=== PATIENT | male | born 1955 | race Caucasian/White ===

== ENCOUNTER 2017-11-23 09:19 | Inpatient (IN) | payer OTHER, MEDICAID, SELFPAY ==
[2017-11-23 09:58] LABS: BASO % 0.2 % (0.0-1.0); HEMATOCRIT 53.8 % (42.0-52.0); HEMOGLOBIN 16.2 g/dl (14.0-18.0); IMMATURE GRANULOCYTE # 0.1 10^3/uL (0-0); IMMATURE GRANULOCYTE % 0.5 % (0-0); LYMPH # 1.7 10^3/uL (1.5-4.5); LYMPH % 13.5 % (24.0-44.0); MEAN CORPUSCULAR HEMOGLOBIN 25.6 pg (27.0-33.0); MEAN CORPUSCULAR HGB CONC 30.1 g/dl (32.0-36.5); MONO # 0.9 10^3/uL (0.0-0.8); MONO % 7.4 % (0.0-5.0); NEUTROPHILS % 78.4 % (36.0-66.0); PLATELET COUNT, AUTOMATED 484 10^3/uL (150-450); RED BLOOD COUNT 6.33 10^6/uL (4.30-6.10); WHITE BLOOD COUNT 12.7 10^3/uL (4.0-10.0)
[2017-11-23 10:38] LABS: ALBUMIN/GLOBULIN RATIO 0.39 (1.00-1.93); ALKALINE PHOSPHATASE 91 U/L (45-117); ALT/SGPT 19 U/L (12-78); ANION GAP 8 MEQ/L (8-16); AST/SGOT 35 U/L (7-37); BILIRUBIN,DIRECT 0.3 MG/DL (0.0-0.2); BILIRUBIN,TOTAL 0.7 MG/DL (0.2-1.0); BLOOD UREA NITROGEN 38 MG/DL (7-18); CALCIUM LEVEL 10.5 MG/DL (8.8-10.2); CARBON DIOXIDE LEVEL 36 MEQ/L (21-32); CHLORIDE LEVEL 108 MEQ/L (98-107); CREATININE FOR GFR 1.04 MG/DL (0.70-1.30); GLOMERULAR FILTRATION RATE > 60.0 (>49); GLUCOSE, FASTING 134 MG/DL (80-110); POTASSIUM SERUM 3.9 MEQ/L (3.5-5.1); SODIUM LEVEL 152 MEQ/L (136-145); TOTAL PROTEIN 10.6 GM/DL (6.4-8.2)
[2017-11-23 10:40] LABS: INR 1.09; PROTHROMBIN TIME 14.3 SECONDS (12.4-14.5)
[2017-11-23 10:41] LABS: PARTIAL THROMBOPLASTIN TIME 27.6 SECONDS (26.8-37.9)
[2017-11-23] MEDS ORDERED: METOPROLOL 5 MG/5 ML VIAL IV ×2 (10:45→17:15)
[2017-11-23 10:48] LABS: CPK CREATINE PHOSPHOKINASE 154 U/L (39-308); TROPONIN I 0.03 NG/ML (< 0.10)
[2017-11-23 10:49] LABS: CK-MB VALUE MASS 1.5 NG/ML (0.0-3.6); MB/CK RELATIVE INDEX 0.97 (< OR =4)
[2017-11-23] MEDS: METOPROLOL TART 50 MG TAB PO (10:49)
[2017-11-23] MEDS: NS 500 ML IV (10:49)
[2017-11-23] MEDS ORDERED: ISOVUE-370 76% 100ML VIAL (Q9967) As Ordered (10:50)
[2017-11-23] MEDS: LevoFLOXacin IV 750 MG in APPROPRIATE DILUENT 1 EA IV (12:45)
[2017-11-23] MEDS: NS 1,000 ML IV (12:45)
[2017-11-23] MEDS ORDERED: ONDANSETRON 4MG/2ML VIAL (J2405) IV (13:45)
[2017-11-23] MEDS: D5W/0.9% SODIUM CHLORIDE 1,000 ML IV ×2 (14:34→18:00)
[2017-11-23] MEDS ORDERED: METOPROLOL 5 MG/5 ML VIAL As Ordered (15:49)
[2017-11-23] MEDS: METOPROLOL 5 MG/5 ML VIAL IV (15:55)
[2017-11-23] MEDS ORDERED: ADENOSINE 6MG/2ML INJECTION (J0153) As Ordered (15:55)
[2017-11-23] MEDS ORDERED: DIGOXIN INJ 0.5 MG/2 ML AMP (J1160) As Ordered ×2 (15:59→16:04)
[2017-11-23] MEDS: DIGOXIN INJ 0.5 MG/2 ML AMP (J1160) IV ×3 (16:05→16:30)
[2017-11-23] MEDS: SODIUM CHLORIDE 0.9% 1000 ML IV (16:25)
[2017-11-23 16:38] LABS: HEMATOCRIT 42.6 % (42.0-52.0); MEAN CORPUSCULAR HEMOGLOBIN 25.5 pg (27.0-33.0); MEAN CORPUSCULAR HGB CONC 30.3 g/dl (32.0-36.5); MEAN CORPUSCULAR VOLUME 84.4 fl (80.0-96.0); RED BLOOD COUNT 5.05 10^6/uL (4.30-6.10); RED CELL DISTRIBUTION WIDTH 16.9 % (11.5-14.5); WHITE BLOOD COUNT 9.6 10^3/uL (4.0-10.0)
[2017-11-23 16:42] LABS: HEMOGLOBIN 12.9 g/dl (14.0-18.0); PLATELET COUNT, AUTOMATED 339 10^3/uL (150-450)
[2017-11-23] MEDS ORDERED: AMIODARONE HCL 150 MG/100 ML PREMIXED BAG (NEXTERONE) As Ordered (16:44)
[2017-11-23] MEDS: AMIODARONE HCL 150 MG in APPROPRIATE DILUENT 1 EA IV (16:53)
[2017-11-23] MEDS ORDERED: diltiaZEM 125 MG in NS 100 ML IV (17:00)
[2017-11-23 17:04] LABS: ANION GAP 8 MEQ/L (8-16); BLOOD UREA NITROGEN 34 MG/DL (7-18); CALCIUM LEVEL 8.7 MG/DL (8.8-10.2); CARBON DIOXIDE LEVEL 31 MEQ/L (21-32); CHLORIDE LEVEL 114 MEQ/L (98-107); CPK CREATINE PHOSPHOKINASE 120 U/L (39-308); CREATININE FOR GFR 0.82 MG/DL (0.70-1.30); GLOMERULAR FILTRATION RATE > 60.0 (>49); GLUCOSE, FASTING 279 MG/DL (80-110); MAGNESIUM LEVEL 2.5 MG/DL (1.8-2.4); POTASSIUM SERUM 3.6 MEQ/L (3.5-5.1); SODIUM LEVEL 153 MEQ/L (136-145); TROPONIN I 0.03 NG/ML (< 0.10)
[2017-11-23 17:05] LABS: MB/CK RELATIVE INDEX 0.83 (< OR =4)
[2017-11-23] MEDS ORDERED: DIGOXIN INJ 0.5 MG/2 ML AMP (J1160) IV ×3 (17:15)
[2017-11-23] MEDS: CLINDAMYCIN 600 MG in APPROPRIATE DILUENT 1 EA IV ×2 (17:29→22:55)
[2017-11-23] MEDS ORDERED: DIGOXIN IMMUNE FAB (OVINE) 40MG VIAL (J1162) IV (17:30)
[2017-11-23] MEDS: ENOXAPARIN 60 MG/0.6 ML SYR (J1650) SC (18:32)
[2017-11-23] MEDS: D5W/0.45% SODIUM CHLORIDE 1,000 ML IV (20:12)
[2017-11-23] MEDS: KCL 10MEQ IN 100ML SWI (KRUN) 10 MEQ in APPROPRIATE DILUENT 1 EA IV ×3 (20:12→22:00)
[2017-11-23] MEDS: diphenhydrAMINE INJ 50MG/ML VIAL (J1200) IV (21:32)
[2017-11-24] MEDS: KCL 10MEQ IN 100ML SWI (KRUN) 10 MEQ in APPROPRIATE DILUENT 1 EA IV (01:54)
[2017-11-24 05:45] LABS: BASO % 0.2 % (0.0-1.0); EOS % 0.2 % (0.0-3.0); HEMATOCRIT 40.1 % (42.0-52.0); HEMOGLOBIN 11.9 g/dl (14.0-18.0); IMMATURE GRANULOCYTE # 0.1 10^3/uL (0-0); IMMATURE GRANULOCYTE % 0.5 % (0-0); LYMPH # 1.6 10^3/uL (1.5-4.5); LYMPH % 14.7 % (24.0-44.0); MEAN CORPUSCULAR HEMOGLOBIN 25.2 pg (27.0-33.0); MEAN CORPUSCULAR HGB CONC 29.7 g/dl (32.0-36.5); MEAN CORPUSCULAR VOLUME 84.8 fl (80.0-96.0); MONO # 1.1 10^3/uL (0.0-0.8); MONO % 9.8 % (0.0-5.0); NEUTROPHILS # 8.3 10^3/uL (1.8-7.7); NEUTROPHILS % 74.6 % (36.0-66.0); PLATELET COUNT, AUTOMATED 329 10^3/uL (150-450); RED BLOOD COUNT 4.73 10^6/uL (4.30-6.10); RED CELL DISTRIBUTION WIDTH 16.5 % (11.5-14.5); WHITE BLOOD COUNT 11.1 10^3/uL (4.0-10.0)
[2017-11-24] MEDS: CLINDAMYCIN 600 MG in APPROPRIATE DILUENT 1 EA IV ×3 (06:01→23:52)
[2017-11-24] MEDS: ENOXAPARIN 60 MG/0.6 ML SYR (J1650) SC (06:02)
[2017-11-24 06:07] LABS: ALBUMIN 2.1 GM/DL (3.2-5.2); ALKALINE PHOSPHATASE 71 U/L (45-117); ALT/SGPT 12 U/L (12-78); ANION GAP 3 MEQ/L (8-16); AST/SGOT 29 U/L (7-37); BILIRUBIN,TOTAL 0.5 MG/DL (0.2-1.0); BLOOD UREA NITROGEN 26 MG/DL (7-18); CALCIUM LEVEL 8.3 MG/DL (8.8-10.2); CARBON DIOXIDE LEVEL 33 MEQ/L (21-32); CHLORIDE LEVEL 118 MEQ/L (98-107); CREATININE FOR GFR 0.71 MG/DL (0.70-1.30); GLOMERULAR FILTRATION RATE > 60.0 (>49); GLUCOSE, FASTING 146 MG/DL (80-110); MAGNESIUM LEVEL 2.4 MG/DL (1.8-2.4); POTASSIUM SERUM 3.6 MEQ/L (3.5-5.1); SODIUM LEVEL 154 MEQ/L (136-145); TOTAL PROTEIN 7.4 GM/DL (6.4-8.2)
[2017-11-24 07:52] LABS: TROPONIN I 0.04 NG/ML (< 0.10)
[2017-11-24 08:03] LABS: DIGOXIN LEVEL 0.6 NG/ML (0.5-2.0)
[2017-11-24] MEDS: LevoFLOXacin IV 500 MG in APPROPRIATE DILUENT 1 EA IV (08:30)
[2017-11-24] MEDS: D5W/0.45% SODIUM CHLORIDE 1,000 ML IV (08:30)
[2017-11-24] MEDS ORDERED: ENOXAPARIN 40 MG/0.4 ML SYRINGE (J1650) SC (09:00)
[2017-11-24] MEDS: INFLUENZA QUADRIVALENT PF VACCINE 0.5ML SYRINGE (90686) IM (10:53)
[2017-11-24] MEDS ORDERED: ISOVUE-370 76% 100ML VIAL (Q9967) As Ordered (11:19)
[2017-11-24] MEDS: PANTOPRAZOLE 40MG INJ (PROTONIX) (C9113) IV (12:36)
[2017-11-24] MEDS ORDERED: D5W 1,000 ML IV (15:15)
[2017-11-24] MEDS: D5W/0.9% SODIUM CHLORIDE 1,000 ML IV (16:17)
[2017-11-24] MEDS: diphenhydrAMINE INJ 50MG/ML VIAL (J1200) IV (21:05)
[2017-11-25] MEDS: D5W/0.9% SODIUM CHLORIDE 1,000 ML IV ×2 (02:24→15:30)
[2017-11-25] MEDS: CLINDAMYCIN 600 MG in APPROPRIATE DILUENT 1 EA IV ×3 (06:22→23:34)
[2017-11-25 06:59] LABS: BASO % 0.2 % (0.0-1.0); EOS # 0.1 10^3/uL (0.0-0.50); EOS % 0.6 % (0.0-3.0); HEMATOCRIT 43.3 % (42.0-52.0); HEMOGLOBIN 12.8 g/dl (14.0-18.0); IMMATURE GRANULOCYTE # 0.1 10^3/uL (0-0); IMMATURE GRANULOCYTE % 0.6 % (0-0); LYMPH # 1.6 10^3/uL (1.5-4.5); LYMPH % 18.4 % (24.0-44.0); MEAN CORPUSCULAR HEMOGLOBIN 25.5 pg (27.0-33.0); MEAN CORPUSCULAR HGB CONC 29.6 g/dl (32.0-36.5); MEAN CORPUSCULAR VOLUME 86.3 fl (80.0-96.0); MONO # 0.7 10^3/uL (0.0-0.8); NEUTROPHILS # 6.2 10^3/uL (1.8-7.7); NEUTROPHILS % 72.2 % (36.0-66.0); PLATELET COUNT, AUTOMATED 224 10^3/uL (150-450); RED BLOOD COUNT 5.02 10^6/uL (4.30-6.10); RED CELL DISTRIBUTION WIDTH 16.6 % (11.5-14.5); WHITE BLOOD COUNT 8.6 10^3/uL (4.0-10.0)
[2017-11-25 07:04] LABS: ALBUMIN/GLOBULIN RATIO 0.36 (1.00-1.93); ALKALINE PHOSPHATASE 70 U/L (45-117); ALT/SGPT 11 U/L (12-78); ANION GAP 2 MEQ/L (8-16); AST/SGOT 26 U/L (7-37); BILIRUBIN,TOTAL 0.6 MG/DL (0.2-1.0); BLOOD UREA NITROGEN 15 MG/DL (7-18); CALCIUM LEVEL 8.7 MG/DL (8.8-10.2); CARBON DIOXIDE LEVEL 32 MEQ/L (21-32); CHLORIDE LEVEL 117 MEQ/L (98-107); CREATININE FOR GFR 0.67 MG/DL (0.70-1.30); GLOMERULAR FILTRATION RATE > 60.0 (>49); GLUCOSE, FASTING 114 MG/DL (80-110); MAGNESIUM LEVEL 2.3 MG/DL (1.8-2.4); POTASSIUM SERUM 3.3 MEQ/L (3.5-5.1); SODIUM LEVEL 151 MEQ/L (136-145); TOTAL PROTEIN 7.6 GM/DL (6.4-8.2)
[2017-11-25] MEDS ORDERED: PANTOPRAZOLE 40MG INJ (PROTONIX) (C9113) IV (09:00)
[2017-11-25] MEDS: POTASSIUM CHLORIDE 10% LIQ 20 MEQ/15 ML UDC PO (10:01)
[2017-11-25] MEDS: LevoFLOXacin IV 500 MG in APPROPRIATE DILUENT 1 EA IV (10:03)
[2017-11-25] MEDS: METOPROLOL 5 MG/5 ML VIAL IV (12:00)
[2017-11-25] MEDS: PANTOPRAZOLE 40MG INJ (PROTONIX) (C9113) IV (12:24)
[2017-11-25] MEDS: diphenhydrAMINE INJ 50MG/ML VIAL (J1200) IV (20:30)
[2017-11-25] MEDS: MORPHINE 2 MG/ML 1ML SYRINGE IV (20:30)
[2017-11-26] MEDS: D5W/0.9% SODIUM CHLORIDE 1,000 ML IV ×3 (03:24→14:32)
[2017-11-26] MEDS: CLINDAMYCIN 600 MG in APPROPRIATE DILUENT 1 EA IV ×3 (06:26→22:11)
[2017-11-26] MEDS: LevoFLOXacin IV 500 MG in APPROPRIATE DILUENT 1 EA IV (09:09)
[2017-11-26] MEDS: PANTOPRAZOLE 40MG INJ (PROTONIX) (C9113) IV (09:09)
[2017-11-26] MEDS: SUCRALFATE SUSP 1GM/10ML UD PO ×3 (13:08→20:56)
[2017-11-26] MEDS: INFLUENZA QUADRIVALENT PF VACCINE 0.5ML SYRINGE (90686) IM (17:13)
[2017-11-26] MEDS: MORPHINE 2 MG/ML 1ML SYRINGE IV (22:12)
[2017-11-27] MEDS: D5W/0.9% SODIUM CHLORIDE 1,000 ML IV ×3 (03:43→23:47)
[2017-11-27] MEDS: CLINDAMYCIN 600 MG in APPROPRIATE DILUENT 1 EA IV ×3 (06:15→23:47)
[2017-11-27] MEDS: PANTOPRAZOLE 40MG INJ (PROTONIX) (C9113) IV (08:17)
[2017-11-27] MEDS: SUCRALFATE SUSP 1GM/10ML UD PO ×5 (08:17→21:00)
[2017-11-27] MEDS: LevoFLOXacin IV 500 MG in APPROPRIATE DILUENT 1 EA IV (08:17)
[2017-11-27] MEDS: LORazepam 2 MG/ML VIAL (J2060) IV (21:00)
[2017-11-27] MEDS: MORPHINE 2 MG/ML 1ML SYRINGE IV (21:01)
[2017-11-28] MEDS: MORPHINE 2 MG/ML 1ML SYRINGE IV ×2 (04:18→22:17)
[2017-11-28] MEDS: CLINDAMYCIN 600 MG in APPROPRIATE DILUENT 1 EA IV ×3 (06:48→22:17)
[2017-11-28] MEDS: SUCRALFATE SUSP 1GM/10ML UD PO ×4 (07:30→15:13)
[2017-11-28] MEDS: LevoFLOXacin IV 500 MG in APPROPRIATE DILUENT 1 EA IV (08:43)
[2017-11-28] MEDS: PANTOPRAZOLE 40MG INJ (PROTONIX) (C9113) IV (08:43)
[2017-11-28] MEDS: D5W/0.9% SODIUM CHLORIDE 1,000 ML IV ×2 (09:14→22:16)
[2017-11-29] MEDS: CLINDAMYCIN 600 MG in APPROPRIATE DILUENT 1 EA IV (06:35)
[2017-11-29] MEDS: D5W/0.9% SODIUM CHLORIDE 1,000 ML IV (06:36)
[2017-11-29] MEDS: LevoFLOXacin IV 500 MG in APPROPRIATE DILUENT 1 EA IV (08:00)
[2017-11-29] MEDS: PANTOPRAZOLE 40MG INJ (PROTONIX) (C9113) IV (08:00)
[2017-11-29] MEDS: MORPHINE 2 MG/ML 1ML SYRINGE IV ×2 (08:06→18:35)
[2017-11-29] MEDS: LORazepam 2 MG/ML VIAL (J2060) IV (20:18)
[2017-11-30] MEDS: PANTOPRAZOLE 40MG INJ (PROTONIX) (C9113) IV (08:00)
[2017-11-30] MEDS: MORPHINE 2 MG/ML 1ML SYRINGE IV (17:00)
[2017-11-30] MEDS: LORazepam 2 MG/ML VIAL (J2060) IV (20:10)
[2017-12-01] MEDS: PANTOPRAZOLE 40MG INJ (PROTONIX) (C9113) IV (08:12)
[2017-12-01] MEDS: MORPHINE 2 MG/ML 1ML SYRINGE IV ×4 (08:14→21:10)
[2017-12-02] MEDS: MORPHINE 2 MG/ML 1ML SYRINGE IV ×4 (08:17→20:41)
[2017-12-02] MEDS: PANTOPRAZOLE 40MG INJ (PROTONIX) (C9113) IV (08:17)
[2017-12-02] MEDS: LORazepam 2 MG/ML VIAL (J2060) IV (20:53)
[2017-12-03] MEDS: MORPHINE 2 MG/ML 1ML SYRINGE IV ×5 (03:44→21:50)
[2017-12-03] MEDS: PANTOPRAZOLE 40MG INJ (PROTONIX) (C9113) IV (09:28)
[2017-12-03] MEDS: SCOPOLAMINE 1MG TRANSDERMAL PATCH TOP (10:41)
[2017-12-04] MEDS: MORPHINE 2 MG/ML 1ML SYRINGE IV ×3 (02:26→19:13)
[2017-12-04] MEDS: PANTOPRAZOLE 40MG INJ (PROTONIX) (C9113) IV (09:38)
[2017-12-04] MEDS: LORazepam 2 MG/ML VIAL (J2060) IV ×2 (11:37→20:57)
[2017-12-05] MEDS: PANTOPRAZOLE 40MG INJ (PROTONIX) (C9113) IV (07:49)
[2017-12-05] MEDS: MORPHINE 2 MG/ML 1ML SYRINGE IV ×3 (07:49→21:10)
[2017-12-06] MEDS: SCOPOLAMINE 1MG TRANSDERMAL PATCH TOP (08:24)
[2017-12-06] MEDS: PANTOPRAZOLE 40MG INJ (PROTONIX) (C9113) IV (08:24)
[2017-12-06] MEDS: MORPHINE 2 MG/ML 1ML SYRINGE IV ×3 (08:33→19:03)
[2017-12-07] MEDS: MORPHINE 2 MG/ML 1ML SYRINGE IV ×2 (07:56→11:29)
[2017-12-07] MEDS: PANTOPRAZOLE 40MG INJ (PROTONIX) (C9113) IV (07:56)
[2017-12-07] MEDS: LORazepam 2 MG/ML VIAL (J2060) IV (16:54)
[2017-12-08] MEDS: PANTOPRAZOLE 40MG INJ (PROTONIX) (C9113) IV (08:34)
[2017-12-08] MEDS: MORPHINE 2 MG/ML 1ML SYRINGE IV ×2 (08:35→11:03)
[2017-12-08] MEDS: NS 1,000 ML IV (17:30)
[2017-12-08] MEDS: LORazepam 2 MG/ML VIAL (J2060) IV (19:45)
[2017-12-09] MEDS: MORPHINE 2 MG/ML 1ML SYRINGE IV (02:41)
[2017-12-09] MEDS: LORazepam 2 MG/ML VIAL (J2060) IV (10:41)
[2017-12-09] MEDS: PANTOPRAZOLE 40MG INJ (PROTONIX) (C9113) IV (10:47)
[2017-12-09] MEDS: SCOPOLAMINE 1MG TRANSDERMAL PATCH TOP (10:48)
[2017-12-09] MEDS: NS 1,000 ML IV (14:45)
[2017-12-09] MEDS ORDERED: diphenhydrAMINE 25 MG CAP PO (20:45)
[2017-12-09] MEDS ORDERED: ONDANSETRON 4 MG ORAL DISINTEGRATING TAB (S0181) PO (20:45)
[2017-12-09] MEDS: MORPHINE 10MG/0.5ML ORAL CONCENTRATE SOLUTION U/D SL (23:27)
[2017-12-09] MEDS: LORazepam 1 MG TAB PO (23:27)
[2017-12-10] MEDS: LORazepam 1 MG TAB PO (06:48)
[2017-12-10] MEDS: PANTOPRAZOLE 40MG TAB (PROTONIX) PO (09:04)
[2017-12-11] MEDS: MORPHINE 10MG/0.5ML ORAL CONCENTRATE SOLUTION U/D SL ×2 (02:31→06:55)
[2017-12-11] MEDS: LORazepam 1 MG TAB PO ×2 (07:35→22:03)
[2017-12-12] MEDS: MORPHINE 10MG/0.5ML ORAL CONCENTRATE SOLUTION U/D SL ×2 (02:05→18:15)
[2017-12-12] MEDS: SCOPOLAMINE 1MG TRANSDERMAL PATCH TOP (09:17)
[2017-12-13] MEDS: MORPHINE 10MG/0.5ML ORAL CONCENTRATE SOLUTION U/D SL (02:51)
[2017-12-13] MEDS: LORazepam 1 MG TAB PO (11:25)
== END 2017-12-13 14:15 | disposition expired | DRG 180 ==
LOC: M MSPAV 11-26 21:33 → M ED 09:19 → M ED INP 13:41 → M PCU 15:06
DX: C34.00 Malignant neoplasm of unspecified main bronchus (principal); J85.0 Gangrene and necrosis of lung; E43 Unspecified severe protein-calorie malnutrition; J18.9 Pneumonia, unspecified organism; I69.954 Hemiplegia and hemiparesis following unspecified cerebrovascular disease affecting left non-dominant side; C78.7 Secondary malignant neoplasm of liver and intrahepatic bile duct; E87.0 Hyperosmolality and hypernatremia; K76.0 Fatty (change of) liver, not elsewhere classified; K22.2 Esophageal obstruction; Z51.5 Encounter for palliative care; F17.200 Nicotine dependence, unspecified, uncomplicated; D72.829 Elevated white blood cell count, unspecified; E83.52 Hypercalcemia; Z88.0 Allergy status to penicillin; Z88.5 Allergy status to narcotic agent; J43.9 Emphysema, unspecified; I48.91 Unspecified atrial fibrillation; B18.2 Chronic viral hepatitis C; Z91.19 Patient's noncompliance with other medical treatment and regimen; K21.9 Gastro-esophageal reflux disease without esophagitis; E87.6 Hypokalemia; D64.9 Anemia, unspecified